=== PATIENT | male | born 1940 | race Caucasian/White ===

== ENCOUNTER 2021-04-15 14:55 | Emergency (ER) | payer OTHER ==
[2021-04-15 17:05] LABS: HEMOGLOBIN 13.6 gm/dl (14.0-17.5); RED BLOOD COUNT 4.21 M/UL (4.20-5.50); WHITE BLOOD COUNT 7.5 K/UL (4.5-11.0)
[2021-04-15 17:46] LABS: BUN/CREATININE RATIO 27 (0-10)
[2021-04-15] MEDS ORDERED: ASPIRIN81 MG PO (19:00)
[2021-04-15] MEDS ORDERED: CARDIZEM CD120 MG PO (19:00)
== END 2021-04-15 19:31 | disposition home or self-care (01) ==
LOC: ER1 14:55
PROVIDERS: Physician Assistant
DX: R55 Syncope and collapse (principal); I48.91 Unspecified atrial fibrillation; E86.0 Dehydration; Z90.89 Acquired absence of other organs; Z85.51 Personal history of malignant neoplasm of bladder
CPT/HCPCS: 70450; 71045; 80053; 81001; 82550; 82553; 83874; 84439; 84443; 84484; 85025; 93005; 96374; 99284